=== PATIENT | female | born 1975 | race Caucasian/White ===

== ENCOUNTER → 2018-04-12 16:29 | Outpatient (CLI) | payer BC, SELFPAY ==
[2018-04-16 08:42] LABS: HPV Reflexed? NOT INDICATED
== END ==
PROVIDERS: Visit Provider Obstetrics & Gynecology
DX: Z12.4 Encounter for screening for malignant neoplasm of cervix (principal)
CPT/HCPCS: 88175; G0145

== ENCOUNTER → 2018-05-07 10:52 | Outpatient (CLI) | payer BC, SELFPAY | PROVIDERS: Visit Provider Obstetrics & Gynecology | DX: Z12.31 Encounter for screening mammogram for malignant neoplasm of breast (principal) | CPT/HCPCS: 77063; 77067 ==

== ENCOUNTER → 2019-05-20 10:23 | Outpatient (CLI) | payer BC, SELFPAY ==
--- NOTE | 2019-05-20 10:28 | BI_ITS ---
MAMMOGRAPHY - BILATERAL SCREENING REASON FOR EXAM: Female, 43 years old. Routine annual screening examination. PERTINENT HISTORY: Aunt with breast cancer. TECHNIQUE: Digital bilateral breast vito (3D mammographic acquisition) in the CC and MLO projections. 2-D mediolateral oblique (MLO) and craniocaudad (CC) views of both breasts were obtained. CAD: Full Field Digital Mammography with Computer Added Detection was performed. COMPARISON: Comparison is made with prior examination dated May 07, 2018 and November 17, 2016. FINDINGS: Breast Composition: The breasts are heterogeneously dense, which may obscure small masses. There are no dominant masses or suspicious calcifications. Stable appearance of the axillary lymph nodes. No other significant abnormalities are identified. There has been no significant change since the prior study. BI/SCREEN MAMM (CAD) W/VITO BILAT IMPRESSION: Stable bilateral screening mammogram. Yearly follow-up mammogram recommended. (A) ASSESSMENT CATEGORY: BIRADS Category 2: Benign. A letter regarding these results will be sent to the patient by the facility within 30 days. Approximately 10% of breast cancers are not detected by mammography. A normal mammogram should not delay biopsy of a clinically suspicious abnormality. [id number] Electronically Signed: Mo Lal, at 8:52 EDT , Service support ,
== END ==
PROVIDERS: Referring Provider Obstetrics & Gynecology; Visit Provider Obstetrics & Gynecology
DX: Z12.31 Encounter for screening mammogram for malignant neoplasm of breast (principal)
CPT/HCPCS: 77063; 77067

== ENCOUNTER → 2019-08-28 13:56 | Outpatient (CLI) | payer BC, SELFPAY ==
[2019-08-27 11:13] VITALS: BMI 31.9
== END ==
PROVIDERS: Referring Provider Physician Assistant Medical; Visit Provider Physician Assistant Medical
DX: J02.9 Acute pharyngitis, unspecified (principal)
CPT/HCPCS: 87070

== ENCOUNTER → 2020-06-24 16:26 | Outpatient (CLI) | payer BC, SELFPAY ==
[2019-08-27 11:13] VITALS: BMI 31.9
--- NOTE | 2020-06-24 16:28 | BI_ITS ---
MAMMOGRAPHY - BILATERAL SCREENING REASON FOR EXAM: Female, 44 years old. Routine annual screening examination. PERTINENT HISTORY: Aunt with breast cancer. TECHNIQUE: Digital bilateral breast vito (3D mammographic acquisition) in the CC and MLO projections. 2-D mediolateral oblique (MLO) and craniocaudad (CC) views of both breasts were obtained. CAD: Full Field Digital Mammography with Computer Added Detection was performed. COMPARISON: Comparison is made with prior study dated 05/20/2019 and 05/07/2018. FINDINGS: Breast Composition: The breasts are heterogeneously dense, which may obscure small masses. There are no dominant masses or suspicious calcifications. Stable benign-appearing bilateral axillary lymph nodes. No other significant abnormalities are identified. There has been no significant change since the prior study. BI/SCREEN MAMM (CAD) W/VITO BILAT IMPRESSION: Stable bilateral screening mammogram. Yearly follow-up mammogram recommended. (A) ASSESSMENT CATEGORY: BIRADS Category 2: Benign. A letter regarding these results will be sent to the patient by the facility within 30 days. Approximately 10% of breast cancers are not detected by mammography. A normal mammogram should not delay biopsy of a clinically suspicious abnormality. [id number] Electronically Signed: Mo Lal, at 8:44 EDT , Service support ,
== END ==
PROVIDERS: Referring Provider Student in an Organized Health Care Education/Training Program; Visit Provider Student in an Organized Health Care Education/Training Program
DX: Z12.31 Encounter for screening mammogram for malignant neoplasm of breast (principal)
CPT/HCPCS: 77063; 77067

== ENCOUNTER → 2021-06-10 | Outpatient (CLI) | payer OTHER, SELFPAY ==
[2021-06-13 17:32] LABS: HPV APTIMA, High Risk Negative (Negative)
== END | disposition home or self-care (01) ==
PROVIDERS: Referring Provider Student in an Organized Health Care Education/Training Program; Visit Provider Student in an Organized Health Care Education/Training Program
DX: Z12.4 Encounter for screening for malignant neoplasm of cervix (principal)
CPT/HCPCS: 87624; 88175; G0145

== ENCOUNTER → 2021-06-26 12:18 | Outpatient (CLI) | payer OTHER, SELFPAY ==
--- NOTE | 2021-06-26 12:20 | BI_ITS ---
MAMMOGRAPHY - BILATERAL SCREENING REASON FOR EXAM: Female, 45 years old. Routine annual screening examination. PERTINENT HISTORY: Aunt with breast cancer. TECHNIQUE: Digital bilateral breast vito (3D mammographic acquisition) in the CC and MLO projections. 2-D mediolateral oblique (MLO) and craniocaudad (CC) views of both breasts were obtained. CAD: Full Field Digital Mammography with Computer Added Detection was performed. COMPARISON: Comparison is made with prior study 06/24/2020 and 05/20/2019. FINDINGS: Breast Composition: The breasts are heterogeneously dense, which may obscure small masses. There are no dominant masses or suspicious calcifications. Stable benign-appearing bilateral axillary lymph nodes. No other significant abnormalities are identified. There has been no significant change since the prior study. BI/SCRN MAMM (CAD)W/VITO BILAT IMPRESSION: Stable bilateral screening mammogram. Yearly follow-up mammogram recommended. (A) ASSESSMENT CATEGORY: BIRADS Category 2: Benign. A letter regarding these results will be sent to the patient by the facility within 30 days. Approximately 10% of breast cancers are not detected by mammography. A normal mammogram should not delay biopsy of a clinically suspicious abnormality. [id number] Electronically Signed: Mo Lal MD at 8:50 EDT , Service support ,
== END ==
PROVIDERS: Referring Provider Student in an Organized Health Care Education/Training Program; Visit Provider Student in an Organized Health Care Education/Training Program
DX: Z12.31 Encounter for screening mammogram for malignant neoplasm of breast (principal)
CPT/HCPCS: 77063; 77067

== ENCOUNTER → 2022-07-06 | Outpatient (CLI) | payer OTHER, BC, SELFPAY ==
--- NOTE | 2022-07-06 12:26 | BI_ITS ---
MAMMOGRAPHY - BILATERAL SCREENING REASON FOR EXAM: Female, 46 years old. Routine annual screening examination. PERTINENT HISTORY: Aunt with breast cancer. TECHNIQUE: Digital bilateral breast vito (3D mammographic acquisition) in the CC and MLO projections. 2-D mediolateral oblique (MLO) and craniocaudad (CC) views of both breasts were obtained. CAD: Full Field Digital Mammography with Computer Added Detection was performed. COMPARISON: Comparison is made with prior study 06/26/2021 and 06/24/2020. FINDINGS: Breast Composition: The breasts are heterogeneously dense, which may obscure small masses. There are no dominant masses or suspicious calcifications. Stable small benign appearing bilateral axillary nodes. No other significant abnormalities are identified. There has been no significant change since the prior study. BI/SCRN MAMM (CAD)W/VITO BILAT IMPRESSION: Stable bilateral screening mammogram. Yearly follow-up mammogram recommended. (A) ASSESSMENT CATEGORY: BIRADS Category 2: Benign. A letter regarding these results will be sent to the patient by the facility within 30 days. Approximately 10% of breast cancers are not detected by mammography. A normal mammogram should not delay biopsy of a clinically suspicious abnormality. [id number] Electronically Signed: Mo Lal MD at 13:33 EST ,
== END | disposition home or self-care (01) ==
LOC: OPBI 12:23
PROVIDERS: Visit Provider Student in an Organized Health Care Education/Training Program
DX: Z12.31 Encounter for screening mammogram for malignant neoplasm of breast (principal)
CPT/HCPCS: 77063; 77067

== ENCOUNTER → 2022-07-17 | Outpatient (CLI) | payer OTHER, BC, SELFPAY ==
--- NOTE | 2022-07-17 | EMB_PTH ---
PATIENT: JULIO WHITE LOC: [facility] U#:[id number] AGE/SX: 46/F ROOM: RE07/17/[address]: Dr. Nat Baker, : 1975 BED: DIS: 07/17/2022 SPEC #: [id number] RECD: 07/17/22 12:11 STATUS: BARRY RENereida #: [id number] VANDANA: 07/17/22 00:[address]: Nat Baker DEPT: SURGICAL PATHOLOGY RECD BY: Tobin Brown ENTERED: 07/17/22 12:12 SP TYPE: ENDOM BX/C MAR[place] DR: No Primary Care Phys Tissues: Endometrium, NOS Procedures: Surgery Specimen Level IV HEADER OPERATION: Endometrial biopsy PRE-OP DIAGNOSIS: Abnormal uterine bleeding N93.9 TISSUE SUBMITTED: Endometrial biopsy MICROSCOPIC DIAGNOSIS Endometrial biopsy: Proliferative endometrium with cystic changes and focal area of exogenous hormone effect. See comment. LAQUITA:lashell 07/20/2022 COMMENT Correlation with clinical findings and appropriate follow up are necessary. MICROSCOPIC DESCRIPTION Slides are reviewed. GROSS DESCRIPTION Received is one container labeled with the patient's name and not further designated. The specimen consists of multiple fragments of hemorrhagic soft tissue mixed with mucoid tissue that in aggregate measure 3 x 2.5 x 0.3 cm. The specimen is totally submitted in one cassette. / SJ:rg 07/17/2022 :5 CPT: 01137
== END | disposition home or self-care (01) ==
LOC: LABSPEC 11:49
PROVIDERS: Visit Provider Student in an Organized Health Care Education/Training Program
DX: N93.9 Abnormal uterine and vaginal bleeding, unspecified (principal)
CPT/HCPCS: 88305

== ENCOUNTER 2022-09-17 09:02 | Day surgery (SDC) | payer OTHER, BC, SELFPAY ==
[2022-09-11 12:56] LABS: Hematocrit 41.1 % (37-47); Hemoglobin 12.7 g/dL (12.0-15.0); Mean Corp Hgb Conc 30.9 g/dL (32-36); Mean Corpuscular Hgb 24.5 pg (27.0-32.0); Mean Corpuscular Volume 79.2 fL (81-99); Mean Platelet Vol. 9.6 fl (6.2-12.0); Platelet Count 493 K/mm3 (150-450); RBC Distribution Width CV 13.6 % (11.6-14.6); RBC Distribution Width SD 39.3 fl (35.1-43.9); Red Blood Count 5.19 M/mm3 (4.2-5.4); White Blood Count 10.7 K/mm3 (4.4-11.0)
[2022-09-11 13:31] LABS: Anion Gap 5 (5-15); BUN 11 mg/dL (7-18); BUN/Creat Ratio 13.5 RATIO (10-20); Calcium,Total 9.3 mg/dL (8.5-10.1); Chloride 104 mmol/L (98-107); Creatinine, Serum 0.81 mg/dL (0.55-1.02); EST Glomerular Filtration Rate 81 mL/min (>60); Est Glom Filt Rate - Afr Amer 97 mL/min (>60); Glucose 110 mg/dL (74-106); Potassium 4.4 mmol/L (3.5-5.1); Sodium Level 137 mmol/L (136-145)
[2022-09-17] VITALS (8 sets, daily range): BP systolic 102–136; BP diastolic 54–91; PULSE 64–111; RESP 16; TEMP 36.3–37.6; O2SAT 95–100; BMI 33.8
--- NOTE | 2022-09-17 07:16 | PCM.HP.BLA ---
History and Physical Date of Admission: 09/17/22 HPI: 46-year-old female with abnormal vaginal bleeding plan for hysteroscopy, dilation curettage, endometrial ablation, and laparoscopic left salpingectomy. Denies headache or vision changes, shortness of breath or chest pain, nausea or vomiting, diarrhea or constipation, fevers or chills. [employer] history: G1, P0 Medical history: Denies Surgical history: 1. Laparotomy with left oophorectomy 2. Laparoscopic right salpingectomy for ectopic 3. Sinus surgery 4. EP study in 1995 Medications: Denies Family history: Cancer and stroke Social history: Denies tobacco, alcohol, drug use Allergies: Erythromycin, Percocet, Vicodin, azithromycin Review of system: Negative otherwise stated above Physical exam: Vitals: Pending General: No acute distress HEENT: Normal cephalic/atraumatic, PERRLA Cardiac: Regular rate and rhythm no murmurs rubs or gallops Respiratory: Clear to auscultation bilaterally Abdomen: Soft, nontender, nondistended. Fibroid uterus palpable Extremities: No edema Musculoskeletal: Strength 5 out of 5 throughout extremities Neurologic: Cranial nerves II through XII grossly intact, no focal deficits Assessment/plan: 46-year-old female with abnormal vaginal bleeding plan for hysteroscopy, dilation curettage, endometrial ablation, and laparoscopic left salpingectomy. Risk, benefits, alternatives constipated patient risk include but are not limited to: Risk of bleeding point transfusion, infection, injury to surrounding tissue (bowel/bladder/major abdominal vessels/uterine perforation), VTE, ICU mission. Patient aware and consented.
[2022-09-17] MEDS: Lactated Ringers 1,000 ML 15 ML IV (09:38)
--- NOTE | 2022-09-17 10:30 | EMB_PTH ---
PATIENT: JULIO WHITE LOC: [facility] [place] U[place][id number] AGE/SX: 46/F ROOM: RE09/17/[address]: Dr. Nat Baker, : 1975 BED: DIS: 09/17/2022 SPEC #: [id number] RECD: 09/17/22 12:59 STATUS: BARRY RENereida #: [id number] VANDANA: 09/17/22 10:[address]: Nat Baker DEPT: SURGICAL PATHOLOGY RECD BY: Maru Lindsay ENTERED: 09/17/22 13:07 SP TYPE: ENDOM BX/C [place] DR: Dr. Ted Farooq MD Tissues: Endometrium, NOS Procedures: Surgery Specimen Level IV HEADER OPERATION: Hysteroscopy, D & C Denise, diagnostic laparoscopy PRE-OP DIAGNOSIS: Abnormal uterine bleeding, sterilization TISSUE SUBMITTED: Endometrial curettings MICROSCOPIC DIAGNOSIS Endometrial curettings: Proliferative endometrium with focal glandular breakdown and blood clots. Mild chronic endometritis. See comment. LAQUITA:lashell 09/18/2022 COMMENT The specimen predominantly consists of blood clots. MICROSCOPIC DESCRIPTION Slides are reviewed. GROSS DESCRIPTION Received in fixative is one container labeled with the patient's name and designated endometrial curettings. The specimen consists of multiple fragments of hemorrhagic soft tissue mixed with blood clot that in aggregate measure 5 x 3 x 0.3 cm. The specimen predominantly consists of blood clot. The entire specimen is submitted in two cassettes. / LAQUITA:lashell 09/17/2022 TC:3 CPT: 90982
--- NOTE | 2022-09-17 10:46 | PCM.OPRPT ---
Report of Operation Date of Procedure: 09/17/22 Pre-Operative Diagnosis: Abnormal uterine bleeding, desires sterilization Post-Operative Diagnosis: Abnormal uterine bleeding, no fallopian tubes identified Surgery/Procedure Performed:: Hysteroscopy, dilation curettage, endometrial ablation with Denise, diagnostic laparoscopy Description of Surgical Findings:: Normal external genitalia. No uterine descensus. Normal-appearing endometrial cavity. Epiploic fat adhesion to anterior abdominal wall. Endometriosis: anterior and right pelvic sidewall. No fallopian tube identified on right or left side after extensive inspection. Normal-appearing right ovary. Type of Anesthesia: General Specimen's removed: Endometrial curettings, fallopian tube Estimated Blood Loss (mL): 20cc Fluids Replaced: 700cc Description of Procedure: Indications/risk/benefits: 46-year-old female with abnormal uterine bleeding desires sterilization. Plan for hysteroscopy, dilation and curettage, Denise ablation, left salpingectomy. All risk, benefits, alternatives discussed with patient. Risk include but are not limited to: Risk bleeding to the point transfusion, infection, injury to surrounding tissue including bowel/bladder/major abdominal vessels/uterine perforation, VTE, ICU admission. Patient aware and consented. Procedure: Patient taken the operating room placed under general anesthesia. Patient prepped and draped in the usual sterile fashion in the dorsal lithotomy position. Mcgill catheter placed. Weighted speculum placed in posterior vagina and Alfaro retractor used to visualize the cervix. Anterior lip of the cervix grasped with single-tooth tenaculum. Cervix sequentially dilated. Hysteroscope placed through the cervical canal and inspection of the uterine cavity completed with findings as above. Uterus sounded to 8 cm, cervical length 4 cm. Denise device opened and deployed. Passed cavity assessments. Ablation completed. Denise removed. Sargis manipulator placed and single-tooth tenaculum removed. Weighted speculum removed. Gloves were changed and attention turned to the anterior abdominal wall. Infraumbilical incision made with scalpel and abdomen entered under direct visualization. Abdomen insufflated. Right and left lower quadrant trochars placed. Adhesions noted as described above. Extensive inspection of the pelvis completed. No fallopian tubes were noted on either the right or left side. No tubal remnants noted. 2 small areas of endometriosis on the right anterior pelvic sidewall. Has no fallopian tubes were identified, abdomen was desufflated and trochars removed. Skin closed with subcuticular stitch and skin glue. Mcgill catheter removed and manipulator removed. Cervix was hemostatic. At the end of the procedure all needle, lap, sponge counts were correct. UOP: 150cc Complications None
--- NOTE | 2022-09-17 10:47 | DCINST_ITS ---
Discharge Instructions Diet Discharge Diet: No restrictions Activity Discharge Activity: Return to Normal Activity and May Shower May resume sexual activity in: 2 weeks Weight Bearing Status: Weight bearing as tolerated Lifting Restrictions: No greater than 20 pounds Dressing / Incision Call your doctor if your incision/area has: Continuous Slow Oozing, Increased Redness and Foul Smelling Discharge Call your doctor if you observe: Fever of 101 or Higher, Change in Color, Inability to urinate, Using more than 1 pad per hour, Shortness of breath, Dizziness, Swelling in the ankles, Chest pain and Calf discomfort Cleanse incision/area with: Soap & Water and Keep Dressing Clean & Dry Follow Up Care Please Follow Up With: Nat Baker DO When: 1-2 week postoperative visit Test Results: Test results from this visit will be discussed in further detail at your follow- up appointment, if applicable. Discharge Plan Admission Primary Reason for Your Visit: Ablation, diagnostic laparoscopy Attending Provider: Nat Baker Primary Care Provider: Ted Farooq Discharge Orders/Prescriptions Prescriptions: New oxycodone 5 mg tablet 5 mg PO Q6H PRN (Reason: pain (scale score 7-10)) 5 Days Qty: 10 0RF Continued diphenhydramine HCl 50 mg Capsule 50 mg PO QHS amitriptyline 25 mg tablet 25 mg PO PRN PRN (Reason: HEADACHES) Label Comments: TAKE 1 TABLET BY MOUTH ONCE DAILY AT BEDTIME cyanocobalamin (vitamin B-12) [Vitamin B-12] 2,000 mcg Tablet Extended Release 3,000 mcg PO DAILY lisinopril-hydrochlorothiazide 10-12.5 mg tablet 1 tab PO DAILY Label Comments: TAKE 1 TABLET BY MOUTH ONCE DAILY IN THE MORNING loratadine [Claritin] 10 mg Tablet 10 mg PO DAILY apple cider vinegar 500 mg Tablet 500 mg PO DAILY cholecalciferol (vitamin D3) [Vitamin D3] 50 mcg (2,000 unit) Capsule 50 mcg PO DAILY omega 2-guj-xwo-fish oil [Fish Oil] 300-1,000 mg Capsule 1 cap PO DAILY Benefiber Clear SF (dextrin) 3 gram/3.5 gram Powder In Packet 1.5 g PO DAILY Rx Instructions: mix into at least 4 oz water or juice before administering Multivitamin Gummies 200 mcg Tablet,Chewable 2 tab PO DAILY melatonin 10 mg Tablet 10 mg PO QHS Referrals / Follow Up: Ted Farooq MD [Primary Care Provider] - Disposition Disposition (needs filled in before D/C Order can be placed): Home, Self Care
[2022-09-17] MEDS: Lubricating Jelly 60 GM Tube 30 GM (11:18)
[2022-09-17] MEDS: HYDROcodone Bitartrate/Apap 5/325 Tablet PO (13:50)
== END 2022-09-17 14:34 | disposition home or self-care (01) ==
LOC: SDC 09:06 → AC 09:07
PROVIDERS: Anesthesiology; PCP Internal Medicine; Referring Provider Student in an Organized Health Care Education/Training Program; Visit Provider Student in an Organized Health Care Education/Training Program
PROC: 0U5B8ZZ Destruction of Endometrium, Via Natural or Artificial Opening Endoscopic (ICD-10-PCS; CPT 58558; principal; 2022-09-17 10:15)
DX: Z30.2 Encounter for sterilization (principal); N71.1 Chronic inflammatory disease of uterus; N93.9 Abnormal uterine and vaginal bleeding, unspecified; I10 Essential (primary) hypertension; Z79.899 Other long term (current) drug therapy
CPT/HCPCS: 58558; 00952; 36415; 80048; 85027; 86850; 86900; 86901; 88305; J7120; J2405